=== PATIENT | female | born 1930 | race Caucasian/White ===

== ENCOUNTER 2017-03-11 14:44 | Emergency (ER) | payer MEDICARE, OTHER ==
[~2017-03-11 14:44] MED LIST: ADALAT CC30 MG PO; BETAP120 PO; GLUCPH PO; HYDROCHLOROT25 MG PO; LEVOTHYROXIN50 MCG PO; LIPITOR80 MG PO; LISINOPRIL40 MG PO; MAGOX4 PO; PLAVIX PO; PLETAL100 PO; TRAZ50 PO
[2017-03-11 16:46] LABS: BASOPHILS 0.5 %; BASOPHILS ABSOLUTE 0.04 10/3/uL (0.0-0.16); EOSINOPHILS 2.2 %; EOSINOPHILS ABSOLUTE 0.18 10/3/uL (0.0-0.53); HEMATOCRIT 38.1 % (36.0-48.0); IMMATURE GRANULOCYTES 0.2 %; IMMATURE GRANULOCYTES ABSOLUTE 0.02 10/3/uL (0.0-0.11); LYMPHOCYTES 21.9 %; LYMPHOCYTES ABSOLUTE 1.78 10/3/uL (0.67-4.30); MEAN CORPUS HGB CONC 34.1 g/dL (32.0-36.0); MEAN CORPUSCULAR HEMOGLOB 31.5 pg (26.0-34.0); MEAN CORPUSCULAR VOLUME 92.3 fL (80-100); MEAN PLATELET VOLUME 10.2 fL (9.2-13.0); MONOCYTES 9.7 %; MONOCYTES ABSOLUTE 0.79 10/3/uL (0.21-1.20); NEUTROPHILS 65.5 %; NEUTROPHILS ABSOLUTE 5.33 10/3/uL (2.02-8.40); PLATELET COUNT 181 10/3/uL (150-400); RBC DISTRIBUTION WIDTH 14.1 % (12.0-16.0); RED CELL COUNT 4.13 10/6/uL (4.0-5.6); WHITE BLOOD CELLS 8.1 10/3/uL (4.5-10.5)
[2017-03-11 16:47] LABS: MANUAL DIFF NO %
[2017-03-11 16:54] LABS: PARTIAL THROMBO TIME 37.5 SEC (22.5-37.2)
[2017-03-11 16:55] LABS: PROTIME (NOT ORD) 31.2 SEC (12.0-14.5)
[2017-03-11 16:57] LABS: CALCIUM, SERUM 8.8 MG/DL (8.5-10.4); CHLORIDE, SERUM 113 MMOL/L (96-112); CO2 (CARBON DIOXIDE) 25 MMOL/L (24-34); GFR AFRICAN AMERICAN 32 ML/MIN (>=60); GFR NON AFRICAN AMERICAN 27 ML/MIN (>=60); GLUCOSE, SERUM 86 MG/DL (60-99); POTASSIUM, SERUM 5.1 MMOL/L (3.5-5.3); SODIUM, SERUM 143 MMOL/L (135-148)
[2017-03-11 16:58] LABS: BUN (BLOOD UREA NITROGEN) 27 MG/DL (6-23)
== END 2017-03-11 17:29 | disposition home or self-care (01) ==
LOC: ER 14:44
PROVIDERS: Nurse Practitioner
DX: M25.561 Pain in right knee (principal); E11.9 Type 2 diabetes mellitus without complications; Z79.899 Other long term (current) drug therapy; Z79.84 Long term (current) use of oral hypoglycemic drugs
CPT/HCPCS: 73560-RT; 80048; 85025; 85610; 85730; 99284; A9270-GY

== ENCOUNTER 2017-04-02 19:22 | Inpatient (IN) | payer MEDICARE, OTHER ==
--- NOTE | ~2017-04-02 | DS ---
Discharge Summary [facility] [address] [place]. [address] NAME: BAKARI SALAS : 34 STATUS : DIS IN PAT#: [id number] AGE: 86 ADM/REG DATE : 04/03/17 MR#: [id number] REPORT SERV DATE: 04/06/17 DICTATED BY: BHARGAV MOSES DATE: 04/05/17 REPORT STATUS : Draft TRANSCRIBED BY: MODL DATE: 04/05/17 ADMISSION DATE: 04/03/2017 DISCHARGE DATE: 04/05/2017 DISCHARGE DIAGNOSES: 1. Abdominal pain, nausea, vomiting, now resolved. 2. Acute kidney injury, improved and at baseline. 3. Cardiac pacemaker. 4. Constipation. 5. Peripheral arterial disease. 6. Atrial fibrillation. 7. Hypertension. 8. Type 2 diabetes mellitus. CONSULTANTS DURING THIS HOSPITALIZATION: None. INVASIVE PROCEDURES DONE DURING THIS HOSPITALIZATION: None. CT of the abdomen and pelvis showing no acute disease. Gastric emptying was cancelled as this is usually an outpatient test. Arterial Dopplers of the abdomen revealing increase velocity in the celiac artery and in the inferior mesenteric artery, normal superior mesenteric artery. A CTA of the abdomen and pelvis not pursued because of patient's elevated creatinine around 1.7 to 1.99. BRIEF HISTORY OF PRESENT ILLNESS: The patient is an 86-year-old female, presented with abdominal pain, nausea, vomiting, so she was admitted. For detailed history and physical exam, please see note dictated by Dr. Rohit Howard on 04/02/2017. HOSPITAL COURSE: After being admitted to the hospital, this patient underwent the above image. CT of the abdomen and pelvis was normal. She was initially thought to have gastroparesis; however, this patient did not require any prokinetic agents. We continued her liquid diet and we hydrated her, and her pressure came up, her bowel function returned to normal. Today, she is tolerating a diet. Her atrial fibrillation remained controlled. She is stable and we will have outpatient arrangement made to be seen by Dr. 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 In the meantime, she will continue warfarin and Pletal. DISCHARGE DISPOSITION: Home. DISCHARGE ACTIVITY: As tolerated. DISCHARGE DIET: Low fat, Diabetic Association Diet. DISCHARGE MEDICATIONS: Lipitor 40 mg once daily, Pletal 50 mg twice daily, levothyroxine 50 mcg once daily, lisinopril 20 mg once daily, sotalol 80 mg twice daily, warfarin 1 mg once at bedtime, Zanaflex 2 mg once at bedtime, Aldactone 25 mg once daily, Zofran 4 mg every Discharge Summary [address] [address] NAME: BAKARI SALAS : 32 STATUS : DIS IN PAT#: [id number] AGE: 86 ADM/REG DATE : 04/03/17 MR#: [id number] REPORT SERV DATE: 04/06/17 DICTATED BY: BHARGAV MOSES DATE: 04/05/17 REPORT STATUS : Draft TRANSCRIBED BY: NAYANA DATE: 04/05/17 four hours p.r.n., Tylenol 325 p.o. daily p.r.n. DISCHARGE FOLLOWUP: With Dr. Bautista Barahona to be scheduled prior to discharge. Also follow up with Katina Presley one week. More than 30 minutes spent planning this patient's discharge, reconciling medications, discussing hospital care and followup, arranging proper outpatient appointments and medications. [place]/NAYANA Bhargav Moses M.D. / [id number] CC: Pablo Carranza NP
--- NOTE | ~2017-04-02 | HP ---
History And Physical [address] [address] NAME: BAKARI SALAS : 34 STATUS : ADM Sherri PAT#: [id number] AGE: 86 ADM/REG DATE : 04/02/17 MR#: [id number] REPORT SERV DATE: 04/03/17 DICTATED BY: TODD NARAYAN DATE: 04/03/17 REPORT STATUS : Draft TRANSCRIBED BY: MODL DATE: 04/03/17 DATE OF ADMISSION: 04/02/2017 CHIEF COMPLAINT: An 86-year-old female, presenting with abdominal pain and nausea. HISTORY OF PRESENT ILLNESS: The patient's history was obtained through careful interview with the patient, coupled with review of [facility] medical records. The patient for about two to three weeks has been having abdominal discomfort. She has daily nausea, she states "I tried to control," but she just cannot. She has had some subjective constipation, been trying enemas to get a good bowel movement. She describes epigastric abdominal discomfort, a fullness quality, sore, 7/10 severity present on a daily basis. For about two months she has had some right knee arthritis with some swelling, a soreness quality, but only a 3/10 severity, although it can increase when she tries to ambulate on the leg. No shortness of breath. No chest pain. No cough. No fevers or chills. No change in urine habit. REVIEW OF SYSTEMS: Otherwise, complete review of systems was obtained and was negative. PAST MEDICAL HISTORY: 1. Pacemaker. 2. Chronic kidney disease, stage 3. Baseline creatinine of 1.4 to 1.7. 3. Diverticulosis, seen by Dr. Coyne. 4. Elevated cholesterol. 5. Hypertension. 6. Diabetes. PAST SURGICAL HISTORY: 1. Hysterectomy. 2. Cholecystectomy. 3. Pacemaker. ALLERGIES: NO KNOWN DRUG ALLERGIES. SOCIAL HISTORY: Lives alone in [place], [place]. Has children who live close by. No tobacco abuse. No alcohol abuse. FAMILY HISTORY: Heart disease. CURRENT MEDICATIONS: History And Physical [address] [address] NAME: BAKARI SALAS : 32 STATUS : ADM Sherri PAT#: [id number] AGE: 86 ADM/REG DATE : 04/02/17 MR#: [id number] REPORT SERV DATE: 04/03/17 DICTATED BY: TODD NARAYAN DATE: 04/03/17 REPORT STATUS : Draft TRANSCRIBED BY: NAYANA DATE: 04/03/17 1. Tylenol. 2. Lipitor 40 mg p.o. daily. 3. Pletal 50 mg p.o. b.i.d. 4. Hydrochlorothiazide 25 mg p.o. daily. 5. Synthroid 50 mcg p.o. daily. 6. Lisinopril 20 mg p.o. daily. 7. Zofran p.r.n. 8. Sotalol 80 mg p.o. b.i.d. 9. Spironolactone 25 mg p.o. daily. 10.Zanaflex 2 mg q.h.s. 11.Coumadin 1 mg p.o. q.h.s. PHYSICAL EXAMINATION: VITAL SIGNS: Temperature 98.2, pulse 67, blood pressure 155/80, respiratory rate 20, and O2 saturation 100% on room air. GENERAL: An ill-appearing female, in evidence of described distress from nausea and abdominal pain. HEENT: Pupils equal, round, and reactive to light. No conjunctival pallor. No scleral icterus. Nares are patent. Oropharynx is clear of obstruction. Very dry mucous membranes. NECK: Trachea midline. No thyromegaly. LYMPH: No cervical lymphadenopathy. No supraclavicular lymphadenopathy. RESPIRATORY: Clear to auscultation at bases. No wheezes, rales, or rhonchi. Normal respiratory effort. CARDIOVASCULAR: Regular rate and rhythm. No murmurs, rubs, or gallops. No extremity edema is appreciated. ABDOMEN: Significant epigastric abdominal pain. No guarding. No rebound. The patient does seem to have distention of the epigastric area with slight tympanic resonance on percussion. She has diminished bowel tones throughout, but there is no appreciable hepatosplenomegaly. DERMATOLOGICAL: Warm and dry extremities. No pallor. No cyanosis. PSYCHIATRIC: Normal affect. Good mood. Alert and oriented x3. LABORATORY DATA: White blood cell count 6.6, hemoglobin 12, hematocrit 34, and platelets 194. Sodium 131, potassium 4.5, chloride 100, bicarb 21, BUN 35, creatinine 2.92, and glucose 100. Lipase 292. Lactic acid 1.3. INR 2.2. Troponin negative. Alkaline phosphatase 153. STUDIES: 1. EKG by my own evaluation shows atrioventricular pacing. 2. CT scan of the abdomen and pelvis shows no acute intraabdominal process. ASSESSMENT AND PLAN: 1. Abdominal pain with nausea. It has been progressive over an extended period of time. Check a mesenteric arterial Doppler ultrasound. Check a gastric emptying study. 2. Acute kidney injury. Place on IV fluids and monitor. History And Physical [address] [address] NAME: BAKARI SALAS : 32 STATUS : ADM Sherri PAT#: [id number] AGE: 86 ADM/REG DATE : 04/02/17 MR#: [id number] REPORT SERV DATE: 04/03/17 DICTATED BY: TODD NARAYAN DATE: 04/03/17 REPORT STATUS : Draft TRANSCRIBED BY: NAYANA DATE: 04/03/17 3. Pacemaker. 4. Constipation. Try MiraLAX. K[place]/NAYANA Todd Narayan M.D. / [id number] CC: MD Katina Bolaños NP
[2017-04-02 20:49] LABS: BASOPHILS 0.5 %; BASOPHILS ABSOLUTE 0.03 10/3/uL (0.0-0.16); EOSINOPHILS 2.9 %; EOSINOPHILS ABSOLUTE 0.19 10/3/uL (0.0-0.53); HEMOGLOBIN 12.1 g/dL (12.0-16.0); IMMATURE GRANULOCYTES 0.2 %; IMMATURE GRANULOCYTES ABSOLUTE 0.01 10/3/uL (0.0-0.11); LYMPHOCYTES 18.1 %; LYMPHOCYTES ABSOLUTE 1.19 10/3/uL (0.67-4.30); MEAN CORPUSCULAR HEMOGLOB 31.8 pg (26.0-34.0); MEAN PLATELET VOLUME 9.7 fL (9.2-13.0); MONOCYTES 10.7 %; NEUTROPHILS 67.6 %; NEUTROPHILS ABSOLUTE 4.44 10/3/uL (2.02-8.40); PLATELET COUNT 186 10/3/uL (150-400); RBC DISTRIBUTION WIDTH 13.4 % (12.0-16.0); WHITE BLOOD CELLS 6.6 10/3/uL (4.5-10.5)
[2017-04-02 20:50] LABS: HEMATOCRIT 33.7 % (36.0-48.0); MANUAL DIFF NO %; MEAN CORPUS HGB CONC 35.9 g/dL (32.0-36.0); MEAN CORPUSCULAR VOLUME 88.7 fL (80-100)
[2017-04-02 20:56] LABS: INTERNATIONAL NORMAL RATI 2.2 UNITS (-); PARTIAL THROMBO TIME 32.2 SEC (22.5-37.2); PROTIME (NOT ORD) 24.3 SEC (12.0-14.5)
[2017-04-02 21:13] LABS: ALBUMIN 3.4 G/DL (3.5-5.0); CALCIUM, SERUM 8.8 MG/DL (8.5-10.4); CHEST PAIN PROFILE TAT 0 Hrs 30 Mins; CO2 (CARBON DIOXIDE) 21 MMOL/L (24-34); DIRECT BILIRUBIN 0.2 MG/DL (0.0-0.4); GLUCOSE, SERUM 100 MG/DL (60-99); INDIRECT BILIRUBIN(NOT ORDER) 0.6 MG/DL (0.1-0.9); POTASSIUM, SERUM 4.5 MMOL/L (3.5-5.3); SGOT(AST) 16 U/L (5-40); SGPT(ALT) 14 U/L (5-65); TOTAL BILIRUBIN 0.8 MG/DL (0-1.2); TOTAL PROTEIN 6.6 G/DL (6.0-8.5); TROPONIN I <0.02 NG/ML (<0.05)
[2017-04-02 21:14] LABS: ALKALINE PHOSPHATASE 133 U/L (45-117); BUN (BLOOD UREA NITROGEN) 35 MG/DL (6-23); CHLORIDE, SERUM 100 MMOL/L (96-112); CREATININE 2.92 MG/DL (0.55-1.02); GFR AFRICAN AMERICAN 16 ML/MIN (>=60); GFR NON AFRICAN AMERICAN 14 ML/MIN (>=60); SODIUM, SERUM 131 MMOL/L (135-148)
[2017-04-02] MEDS ORDERED: SYN.05 PO (22:50)
[2017-04-02] MEDS ORDERED: HYDROCHLOROT25 MG PO (22:50)
[2017-04-02] MEDS ORDERED: ZANAFLEX2 MG PO (22:51)
[2017-04-02] MEDS ORDERED: LIPITOR40 PO (22:51)
[2017-04-02] MEDS ORDERED: BETAPACE80 PO (22:53)
[2017-04-02] MEDS ORDERED: SPIRO25 PO (22:53)
[2017-04-02] MEDS ORDERED: C1 PO (22:53)
[2017-04-02] MEDS ORDERED: CILOSTAZOL50 MG PO (22:54)
[2017-04-02] MEDS ORDERED: ZESTRIL20 MG PO (22:54)
[2017-04-02] MEDS ORDERED: ZOFRAN4 PO (22:55)
[2017-04-02] MEDS ORDERED: T PO (22:55)
[2017-04-03 05:37] LABS: BASOPHILS 0.4 %; BASOPHILS ABSOLUTE 0.02 10/3/uL (0.0-0.16); EOSINOPHILS 3.5 %; EOSINOPHILS ABSOLUTE 0.19 10/3/uL (0.0-0.53); HEMATOCRIT 31.5 % (36.0-48.0); HEMOGLOBIN 11.2 g/dL (12.0-16.0); IMMATURE GRANULOCYTES 0.2 %; IMMATURE GRANULOCYTES ABSOLUTE 0.01 10/3/uL (0.0-0.11); LYMPHOCYTES 24.7 %; LYMPHOCYTES ABSOLUTE 1.34 10/3/uL (0.67-4.30); MEAN CORPUS HGB CONC 35.6 g/dL (32.0-36.0); MEAN CORPUSCULAR HEMOGLOB 31.7 pg (26.0-34.0); MEAN CORPUSCULAR VOLUME 89.2 fL (80-100); MEAN PLATELET VOLUME 9.5 fL (9.2-13.0); MONOCYTES 10.1 %; MONOCYTES ABSOLUTE 0.55 10/3/uL (0.21-1.20); NEUTROPHILS 61.1 %; NEUTROPHILS ABSOLUTE 3.32 10/3/uL (2.02-8.40); PLATELET COUNT 164 10/3/uL (150-400); RBC DISTRIBUTION WIDTH 13.5 % (12.0-16.0); RED CELL COUNT 3.53 10/6/uL (4.0-5.6); WHITE BLOOD CELLS 5.4 10/3/uL (4.5-10.5)
[2017-04-03 05:41] LABS: MANUAL DIFF NO %
[2017-04-03 05:48] LABS: INTERNATIONAL NORMAL RATI 2.1 UNITS (-); PARTIAL THROMBO TIME 32.6 SEC (22.5-37.2); PROTIME (NOT ORD) 23.3 SEC (12.0-14.5)
[2017-04-03 05:50] LABS: ASCORBIC ACID (UR NOT ORDER) NEG (NEG); BILIRUBIN, URINE NEGATIVE (NEG); KETONE, URINE NEGATIVE (NEG); LEUKOCYTE ESTERASE(NOT OR NEG (NEG); WBC (NOT ORDERED) (RFLEX) < 1 (0-5)
[2017-04-03 06:07] LABS: A/G RATIO 1.1 (0.7-1.9); ALBUMIN 3.1 G/DL (3.5-5.0); BUN (BLOOD UREA NITROGEN) 32 MG/DL (6-23); CALCIUM, SERUM 8.9 MG/DL (8.5-10.4); CHLORIDE, SERUM 105 MMOL/L (96-112); CO2 (CARBON DIOXIDE) 21 MMOL/L (24-34); CREATININE 2.76 MG/DL (0.55-1.02); GFR AFRICAN AMERICAN 18 ML/MIN (>=60); GFR NON AFRICAN AMERICAN 15 ML/MIN (>=60); GLOBULIN 2.9 G/DL (2.5-4.1); GLUCOSE, SERUM 89 MG/DL (60-99); POTASSIUM, SERUM 4.9 MMOL/L (3.5-5.3); SGOT(AST) 15 U/L (5-40); SGPT(ALT) 11 U/L (5-65); SODIUM, SERUM 135 MMOL/L (135-148); TOTAL BILIRUBIN 0.6 MG/DL (0-1.2)
[2017-04-03 06:21] LABS: ALKALINE PHOSPHATASE 105 U/L (45-117)
[2017-04-04 05:03] LABS: BASOPHILS 0.5 %; BASOPHILS ABSOLUTE 0.03 10/3/uL (0.0-0.16); EOSINOPHILS 3.1 %; HEMATOCRIT 33.1 % (36.0-48.0); HEMOGLOBIN 11.3 g/dL (12.0-16.0); IMMATURE GRANULOCYTES 0.2 %; IMMATURE GRANULOCYTES ABSOLUTE 0.01 10/3/uL (0.0-0.11); LYMPHOCYTES 18.4 %; MEAN CORPUS HGB CONC 34.1 g/dL (32.0-36.0); MEAN CORPUSCULAR VOLUME 90.9 fL (80-100); MEAN PLATELET VOLUME 9.6 fL (9.2-13.0); MONOCYTES 10.1 %; MONOCYTES ABSOLUTE 0.66 10/3/uL (0.21-1.20); NEUTROPHILS 67.7 %; NEUTROPHILS ABSOLUTE 4.43 10/3/uL (2.02-8.40); PLATELET COUNT 191 10/3/uL (150-400); RBC DISTRIBUTION WIDTH 13.8 % (12.0-16.0); RED CELL COUNT 3.64 10/6/uL (4.0-5.6); WHITE BLOOD CELLS 6.5 10/3/uL (4.5-10.5)
[2017-04-04 05:06] LABS: MANUAL DIFF NO %
[2017-04-04 05:10] LABS: INTERNATIONAL NORMAL RATI 2.1 UNITS (-); PROTIME (NOT ORD) 23.2 SEC (12.0-14.5)
[2017-04-04 05:16] LABS: A/G RATIO 1.1 (0.7-1.9); ALBUMIN 3.2 G/DL (3.5-5.0); ALKALINE PHOSPHATASE 128 U/L (45-117); BUN (BLOOD UREA NITROGEN) 23 MG/DL (6-23); CHLORIDE, SERUM 114 MMOL/L (96-112); CO2 (CARBON DIOXIDE) 19 MMOL/L (24-34); CREATININE 2.01 MG/DL (0.55-1.02); GFR AFRICAN AMERICAN 26 ML/MIN (>=60); GFR NON AFRICAN AMERICAN 22 ML/MIN (>=60); GLUCOSE, SERUM 91 MG/DL (60-99); PHOSPHORUS, SERUM 2.8 MG/DL (2.5-4.5); POTASSIUM, SERUM 4.7 MMOL/L (3.5-5.3); SGOT(AST) 24 U/L (5-40); SGPT(ALT) 12 U/L (5-65); SODIUM, SERUM 141 MMOL/L (135-148); TOTAL BILIRUBIN 0.6 MG/DL (0-1.2); TOTAL PROTEIN 6.2 G/DL (6.0-8.5)
[2017-04-05 07:01] LABS: BASOPHILS 0.6 %; BASOPHILS ABSOLUTE 0.05 10/3/uL (0.0-0.16); EOSINOPHILS 2.4 %; EOSINOPHILS ABSOLUTE 0.19 10/3/uL (0.0-0.53); HEMOGLOBIN 12.5 g/dL (12.0-16.0); IMMATURE GRANULOCYTES 0.3 %; IMMATURE GRANULOCYTES ABSOLUTE 0.02 10/3/uL (0.0-0.11); LYMPHOCYTES 21.2 %; LYMPHOCYTES ABSOLUTE 1.69 10/3/uL (0.67-4.30); MEAN CORPUS HGB CONC 34.2 g/dL (32.0-36.0); MEAN CORPUSCULAR HEMOGLOB 31.6 pg (26.0-34.0); MEAN CORPUSCULAR VOLUME 92.4 fL (80-100); MEAN PLATELET VOLUME 9.3 fL (9.2-13.0); MONOCYTES 10.9 %; MONOCYTES ABSOLUTE 0.87 10/3/uL (0.21-1.20); NEUTROPHILS 64.6 %; NEUTROPHILS ABSOLUTE 5.17 10/3/uL (2.02-8.40); PLATELET COUNT 209 10/3/uL (150-400); RBC DISTRIBUTION WIDTH 13.6 % (12.0-16.0); RED CELL COUNT 3.95 10/6/uL (4.0-5.6)
[2017-04-05 07:07] LABS: INTERNATIONAL NORMAL RATI 2.6 UNITS (-)
[2017-04-05 07:08] LABS: PROTIME (NOT ORD) 27.5 SEC (12.0-14.5)
[2017-04-05 07:10] LABS: HEMATOCRIT 36.5 % (36.0-48.0); MANUAL DIFF NO %
[2017-04-05 07:16] LABS: ALBUMIN 3.7 G/DL (3.5-5.0); BUN (BLOOD UREA NITROGEN) 21 MG/DL (6-23); CALCIUM, SERUM 9.5 MG/DL (8.5-10.4); CHLORIDE, SERUM 114 MMOL/L (96-112); CO2 (CARBON DIOXIDE) 20 MMOL/L (24-34); CREATININE 1.76 MG/DL (0.55-1.02); GFR AFRICAN AMERICAN 30 ML/MIN (>=60); GFR NON AFRICAN AMERICAN 26 ML/MIN (>=60); GLUCOSE, SERUM 115 MG/DL (60-99); PHOSPHORUS, SERUM 2.9 MG/DL (2.5-4.5); POTASSIUM, SERUM 5.2 MMOL/L (3.5-5.3); SODIUM, SERUM 143 MMOL/L (135-148)
== END 2017-04-05 18:00 | disposition home or self-care (01) | DRG 684 ==
LOC: ER 19:22 → 7NO 22:38
PROVIDERS: Emergency Medicine; Hospitalist; Internal Medicine
DX: N17.9 Acute kidney failure, unspecified (principal); I48.91 Unspecified atrial fibrillation; E11.9 Type 2 diabetes mellitus without complications; R11.2 Nausea with vomiting, unspecified; K59.00 Constipation, unspecified; I73.9 Peripheral vascular disease, unspecified; Z79.01 Long term (current) use of anticoagulants; N18.3 Chronic kidney disease, stage 3 (moderate); I12.9 Hypertensive chronic kidney disease with stage 1 through stage 4 chronic kidney disease, or unspecified chronic kidney disease; Z95.0 Presence of cardiac pacemaker
CPT/HCPCS: 74176; 80048; 80053; 80069; 80076; 81001; 82150; 82962; 83036; 83605; 83690; 83735; 84100; 84443; 84484; 85025; 85610; 85730; 93005; 93975; 96374; 96375; 99285; A9270-GY; J2405; J3475